=== PATIENT | male | born 2000 | race African-American/Black ===

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

== ENCOUNTER 2022-05-03 12:35 | Emergency (ER) | payer MEDICAID ==
[~2022-05-03] VITALS: Ht 208.3 cm; Wt 93.0 kg
[2022-05-03 12:58] VITALS: BP 120/63
[2022-05-03] MEDS: VISCOUS LIDOCAINE 2% 15 ML UDC PO STA (14:26)
[2022-05-03] MEDS: ACETAMINOPHEN 325MG TABLET PO STA (14:26)
[2022-05-03] MEDS: MAGNESIUM/ALUMINUM HYDROXIDE/SIMETHICONE 30ML UDC PO STA (14:26)
[2022-05-03] MEDS: FAMOTIDINE 20MG TABLET PO ONE (14:27)
[2022-05-03 14:34] LABS: BASOPHILS % 0.5 % (0.0-2.0); HEMATOCRIT. 45.2 % (42.0-52.0); MEAN CORPUSCULAR HEMOGLOBIN 29.2 pg (28.0-32.0); MEAN CORPUSCULAR VOLUME 87.9 fL (80.0-94.0); MEAN PLATELET VOLUME 8.6 fl (7.4-10.4); NEUTROPHILS % 63.5 % (40.0-76.0); PLATELET 305 x1000/uL (130-400); RED BLOOD CELL COUNT 5.14 mill/uL (4.7-6.1); RED CELL DISTRIBUTION WIDTH 12.6 % (11.6-14.6)
[2022-05-03 14:44] LABS: CHLORIDE 102 mEq/L (98-107)
[2022-05-03] MEDS: IBUPROFEN 400MG TABLET PO ONE (17:29)
[2022-05-03] MEDS ORDERED: FAMO-135 PO (18:53)
== END 2022-05-03 19:08 | disposition home or self-care (01) ==
LOC: ER 12:35
DX: R10.84 Generalized abdominal pain (principal)
CPT/HCPCS: 36415; 74176; 80053; 85025; 99284

== ENCOUNTER 2022-05-20 11:01 | Emergency (ER) | payer MEDICAID ==
[~2022-05-20] VITALS: Ht 208.3 cm; Wt 91.0 kg
[~2022-05-20 11:01] MED LIST: FAMO-135 PO
[2022-05-20] MEDS ORDERED: KETOROLAC 30MG/ML VIAL IM ONE (14:15)
[2022-05-20 14:42] LABS: BASOPHILS % 0.8 % (0.0-2.0); EOSINOPHILS % 2.9 % (0.0-5.0); HEMATOCRIT. 38.7 % (42.0-52.0); HEMOGLOBIN. 13.2 g/dL (14.0-18.0); LYMPHOCYTES % 32.3 % (20.0-50.0); MEAN CORPUSCULAR HEMOGLOBIN 29.7 pg (28.0-32.0); MEAN CORPUSCULAR VOLUME 87.3 fL (80.0-94.0); MEAN PLATELET VOLUME 8.3 fl (7.4-10.4); MONOCYTES % 8.9 % (2.0-8.0); NEUTROPHILS % 55.1 % (40.0-76.0); PLATELET 297 x1000/uL (130-400); RED BLOOD CELL COUNT 4.43 mill/uL (4.7-6.1); RED CELL DISTRIBUTION WIDTH 12.7 % (11.6-14.6)
[2022-05-20 14:46] LABS: CHLORIDE 106 mEq/L (98-107)
[2022-05-20 14:55] LABS: CREATINE KINASE 870 IU/L (39-308)
[2022-05-20 15:36] LABS: CLARITY URINE CLEAR (CLEAR); COLOR URINE YELLOW (YELLOW); KETONES URINE TRACE (NEGATIVE); LEUKOCYTE ESTERASE URINE NEGATIVE (NEGATIVE); NITRITE URINE NEGATIVE (NEGATIVE); OCCULT BLOOD URINE NEGATIVE (NEGATIVE); PROTEIN URINE TRACE (NEGATIVE); SPECIFIC GRAVITY URINE 1.021 (1.005-1.030)
[2022-05-20] MEDS ORDERED: ACET-2708 PO (17:07)
[2022-05-20 17:42] VITALS: BP 105/86
== END 2022-05-20 17:43 | disposition home or self-care (01) ==
LOC: ER 11:12
DX: M79.652 Pain in left thigh (principal)
CPT/HCPCS: 36415; 73552; 80053; 81003; 82550; 85025; 96372; 99284; J1885